=== PATIENT | male | born 1980 | race Hispanic/Latino ===

== ENCOUNTER 2023-03-19 16:16 | Emergency (ER) | payer MEDICAID, OTHER ==
[~2023-03-19] VITALS: Ht 177.8 cm; Wt 99.8 kg
[2023-03-19] MEDS ORDERED: CYCLOBENZAPRINE HCL 10 MG TABLET PO ONE (19:30)
[2023-03-19] MEDS ORDERED: IBUPROFEN 800 MG TAB PO ONE (19:30)
[2023-03-19] MEDS ORDERED: ACETAMINOPHEN 325 MG TAB PO ONE (19:30)
[2023-03-19] MEDS ORDERED: METH4TAB3 PO (19:36)
[2023-03-19] MEDS ORDERED: IBUP-2077 PO (19:36)
[2023-03-19] MEDS ORDERED: CYCL-309 PO (19:36)
[2023-03-19] MEDS: DEXAMETHASONE 4 MG TAB PO SCH ×2 (20:14→20:52)
[2023-03-19] MEDS ORDERED: DEXAMETHASONE SOD PHOSPHATE 4 MG/ML 1ML VIAL ONE (20:50)
[2023-03-19 22:08] VITALS: BP 139/87; PULSE 87; RESP 16; O2SAT 99
== END 2023-03-19 22:11 | disposition home or self-care (01) ==
LOC: EDH 16:16
DX: M54.42 Lumbago with sciatica, left side (principal); E11.9 Type 2 diabetes mellitus without complications
CPT/HCPCS: 99284; J1100; J8540

== ENCOUNTER → 2024-10-01 | Outpatient (CLI) | payer MEDICAID ==
[~2024-10-01] MED LIST: ACET-2079 PO; CYCL-309 PO; GADOTERATE MEGLUMINE 10 MMOL/20 ML VIAL IV ONE; IBUP-2077 PO; IOHEXOL 350 MG/ML 100ML INFUS..BTL IV ONE; METF-444 PO; METH4TAB3 PO; SEMA1PEN3 SQ
--- NOTE | 2024-10-01 10:35 | HMCIMG ---
CT ABDOMEN/PELVIS W/WO CONTRAS REASON: MALIGNANT NEOPLASM OF HEAD PANCREAS COMPARISON: 12/07/2023 TECHNIQUE: Images are obtained from lung bases to the symphysis pubis following IV contrast, 100 cc Omnipaque 350. FINDINGS: Lung bases are clear. There are no focal liver lesions. There is a small cyst lower pole right kidney with a small amount of mural calcification, there is no associated mass. Kidneys appear otherwise unremarkable. This appears unchanged compared to previous exam... Spleen appears unremarkable. There has been a previous cholecystectomy. There is a low attenuation mass in the head of the pancreas measuring 3.5 x 2.5 cm axial dimension. This has peripheral enhancement and low attenuation center which could be necrosis. There is a metal biliary stent in place, the intrahepatic biliary tree is not distended. Pancreatic duct is dilated at 5 mm. Remainder of the pancreas appears partially atrophic. These findings all appear new since prior exam 12/07/2023. Bowel loops appear unremarkable. This includes normal appearance of the appendix There is no evidence of free fluid or intraperitoneal air. There are no focal fluid collections. Aorta and retroperitoneum appear normal as do pelvic soft tissue structures. The anterior abdominal wall is intact. Osseous structures appear unremarkable. IMPRESSION: 1. 2.5 x 3.5 cm mass in the head and uncinate process of pancreas, decreased attenuation, this could represent necrotic tumor. 2. Biliary stent in position, common duct is not distended. 3. Relatively atrophic remaining portion of pancreas, pancreatic duct is dilated at 5 mm. 4. Mildly complex cyst lower pole left kidney right kidney, no change compared to prior exam. Following dose reduction techniques: automated exposure control, adjustment of the mA and kv according to patient's size, or use of a iterative reconstruction technique.
--- NOTE | 2024-10-01 16:00 | HMCIMG ---
MR ABDOMEN W/WO CON REASON: C25.0 Malignant neoplasm of head of pancreas COMPARISON: CT abdomen and pelvis 10/01/2024 TECHNIQUE: Images are obtained in the axial and coronal plane with T1, proton density, T2 and gradient recalled sequences. Images are also obtained pre and post IV contrast, 19 cc Clariscan IV. FINDINGS: There is an enhancing mass in the the uncinate process of the pancreas. This measures 3.1 x 3.5 cm axial dimension. There is a peripheral enhancing rim followed with with a central area of decreased enhancement. Findings are consistent with pancreatic mass with central necrotic component. Body and tail of the pancreas are atrophic with distention of the pancreatic duct at 5 mm. Common duct appears distended at 7 mm. In hepatic biliary tree does not appear dilated. There are no focal liver lesions. Spleen and visualized portions of the kidneys appear normal. There is no retroperitoneal lymphadenopathy. There are no focal fluid collections. There is no peripancreatic inflammation. IMPRESSION: 1. Mass in the uncinate process of the pancreas, 3.1 x 3.5 cm, enhancing rim with central necrotic center. 2. 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 3. Common duct is mildly dilated at 7 mm. 4. Head and body and tail the pancreas are atrophic with distention of the pancreatic duct. 5. No focal liver lesions identified.
== END | disposition home or self-care (01) ==
LOC: RAH 07:44
PROVIDERS: ATTEND Surgery Surgical Oncology
DX: C25.0 Malignant neoplasm of head of pancreas (principal); N28.89 Other specified disorders of kidney and ureter; R22.0 Localized swelling, mass and lump, head; K86.89 Other specified diseases of pancreas; N28.1 Cyst of kidney, acquired
CPT/HCPCS: 74178; 74183; Q9967; A9575